=== PATIENT | female | born 2005 | race Hispanic/Latino ===

== ENCOUNTER 2024-02-20 13:56 | Emergency (ER) | payer SELFPAY ==
[~2024-02-20] VITALS: Ht 152.4 cm; Wt 55.6 kg
[2024-02-20] MEDS ORDERED: LORazepam 1 MG TAB PO ONE (14:15)
[2024-02-20 14:33] LABS: BASOPHILS 0.7 % (0-2); EOSINOPHILS 0.4 % (0-6); HEMATOCRIT 39.8 % (35.0-50.0); HEMOGLOBIN 12.9 g/dL (12.0-18.0); LYMPHOCYTES 15.3 % (24-44); MCH 23.3 (27-36); MCHC 32.5 g/dl (30-36); MCV 71.8 fl (81-99); NEUTROPHILS 75.6 % (39-80); PLATELET COUNT 465 K/uL (140-440); RBC 5.54 M/ul (4.3-5.7); RDW 18.4 (10.5-15.0)
[2024-02-20] MEDS ORDERED: diphenhydrAMINE HCL 50 MG CAP PO ONE (14:45)
[2024-02-20 14:48] LABS: ALBUMIN 3.7 g/dL (3.4-5.0); ALBUMIN/GLOBULIN RATIO 0.77 (1.1-2.4); BILIRUBIN, TOTAL 0.4 ng/dL (0.2-1.0); BUN/CREATININE RATIO 12.35 (6.0-28.6); CALCIUM 9.1 mg/dL (8.5-10.1); CREATININE, SERUM 0.89 mg/dL (0.55-1.02); PROTEIN, TOTAL 8.5 g/dL (6.4-8.2)
[2024-02-20 16:43] LABS: AMPHETAMINES, URINE POSITIVE (NEGATIVE); BARBITURATES, URINE NEGATIVE (NEGATIVE); BENZODIAZEPINE, URINE NEGATIVE (NEGATIVE); BUPRENORPHINE, URINE NEGATIVE (NEGATIVE); CANNABINOID, URINE POSITIVE (NEGATIVE); COCAINE, URINE NEGATIVE (NEGATIVE); ECSTASY, URINE POSITIVE (NEGATIVE); FENTANYL, URINE POSITIVE (NEGATIVE); METHADONE, URINE NEGATIVE (NEGATIVE); OPIATES, URINE NEGATIVE (NEGATIVE); OXYCODONE, URINE NEGATIVE (NEGATIVE); PHENCYCLIDINE, URINE NEGATIVE (NEGATIVE)
[2024-02-20] MEDS ORDERED: NALOXONE 4 MG NASAL SPRAY #2 HOME.PACK NAS ONE (18:00)
[2024-02-20 18:19] VITALS: BP 113/101
== END 2024-02-20 18:19 | disposition home or self-care (01) ==
LOC: ED 13:56
PROVIDERS: Emergency Medicine
DX: F19.10 Other psychoactive substance abuse, uncomplicated (principal)
CPT/HCPCS: 36415; 80053; 80307; 84703; 85025; A9270-GY; G0480; J3490; Q0163

== ENCOUNTER 2024-08-07 16:49 | Observation (INO) | payer OTHER | END 2024-08-07 23:40 | disposition home or self-care (01) | LOC: ED 16:49 → MS 16:50 | PROVIDERS: ADMIT Surgery | PROC: 0DC68ZZ Extirpation of Matter from Stomach, Via Natural or Artificial Opening Endoscopic (ICD-10-PCS; principal; 2024-08-07) | DX: T18.2XXA Foreign body in stomach, initial encounter (principal); W44.A0XA Battery unspecified, entering into or through a natural orifice, initial encounter; Y92.149 Unspecified place in prison as the place of occurrence of the external cause ==

== ENCOUNTER 2024-11-05 13:44 | Observation (INO) | payer OTHER ==
[~2024-11-05] VITALS: Ht 152.4 cm; Wt 72.0 kg
[2024-11-05] MEDS ORDERED: LACTATED RINGER'S 1,000 ML IV SCH ×2 (14:15→17:15)
[2024-11-05 14:37] LABS: BASOPHILS 0.5 % (0.1-1.2); EOSINOPHILS 0.3 % (0.7-5.8); LYMPHOCYTES 18.2 % (19.3-51.7); MCH 21.9 PG (25.6-32.2); MCHC 31.8 g/dL (32.2-35.5); MCV 69.0 fL (79.4-94.8); MONOCYTES 6.9 % (4.7-12.5); NEUTROPHILS 73.9 % (34.0-71.1); RBC 5.65 M/uL (3.93-5.22)
[2024-11-05 14:54] LABS: ALT (SGPT) 20.0 U/L (14-59); AST (SGOT) 19.0 U/L (15-37); GLOMERULAR FILTRATION RATE,EST 138.0 mL/min (>60); PROTEIN, TOTAL 7.6 g/dL (6.4-8.2); UREA NITROGEN 10.0 mg/dL (7-18)
[2024-11-05 15:19] LABS: BLOOD/HGB, URINE NEGATIVE (Negative); KETONE, URINE NEGATIVE (Negative); LEUK ESTERASE, URINE MODERATE (negative); NITRITE, URINE NEGATIVE (negative)
[2024-11-05 15:24] LABS: EPITHELIAL CELLS, URINE SQUAMOUS 4+ /lpf (0-1+)
[2024-11-05 15:25] LABS: BACTERIA, URINE 1+ /hpf (negative); CASTS, URINE NONE SEEN \\lpf; CRYSTALS, URINE NONE SEEN (0-1+); REFLEX CULTURE, URINE No (No)
[2024-11-05] MEDS ORDERED: SEVOFLURANE 250 ML BTL INH ONE (15:31)
[2024-11-05] MEDS ORDERED: SUCCINYLCHOLINE IN 0.9% NACL 200 MG/10 ML SYRINGE ONE (17:33)
[2024-11-05] MEDS ORDERED: LIDOCAINE HCL 2% 5 ML SDV ONE (17:33)
[2024-11-05 18:40] VITALS: BP 130/92
--- NOTE | 2024-11-05 18:40 | NUR ---
PT ARRIVES TO ROOM 127 VIA STRETCHER - ALERT AND ORIENTED SITTING UP IN BED. PT DRINKING WATER WITHOUT DIFFICULTY. PT DENIES PAIN OR ANY COMPLAINTS. VS STABLE. SANDWHICH BOX AND WARM BLANKET PROVIDED. CALL LIGHT IN REACH.
--- NOTE | 2024-11-05 18:57 | NUR ---
11/05/24 1857 Meggan Vila 1814 PT ARRIVED TO PACU ASLEEP AND VSS. RESP EVEN AND UNLABORED. 181 O2 REMOVED. PT WOKE TO TACTILE STIMULI AND MOVING AROUND IN BED WITH EYES CLOSED. 182 PT WOKE AND EYES OPEN, REORIENTED TO PACU. DENIES PAIN AND NAUSEA. 184 PT EATING FOOD AND SIPPING WATER. PT TRANSFERED TO CCU AND ALL QUESTIONS ANSWERED. PLAN OF CARE DISCUSSED.
[2024-11-05] MEDS ORDERED: FAMOTIDINE 20 MG/ 2 ML VIAL IV SCH (21:00)
--- NOTE | 2024-11-08 11:57 | OR ---
[facility] [address], [place] [address] Signed DATE OF OPERATION: 11/05/2024 SURGEON: Natasha Ospina MD TIME: 06:10 p.m. PREOPERATIVE DIAGNOSIS: Recurrent ingested foreign body (battery, AAA size). POSTOPERATIVE DIAGNOSIS: Recurrent ingested foreign body (battery, AAA size). PROCEDURES: 1. Upper endoscopy. 2. Endoscopic extraction of gastric foreign body (battery). ANESTHESIA: General endotracheal. Fady Henley CRNA. INDICATION: This 19-year-old woman is incarcerated at [facility] and brought by shelter personnel to the emergency room having ingested yet another battery. She has had the same episode in July 2024. She has had other episodes of a similar nature. The patient is always released from custody anticipating medical intervention, which has unfortunately a positive effect on her ingesting foreign body so as to be released from the shelter reliably. In any case, the KUB and CT scan were performed confirming an AAA size battery in the proximal stomach just as she had in July. She is admitted at this time to undergo upper endoscopy with removal of foreign body, battery, on the basis of severe and significant complications that ingestion of batteries, specifically erosion and perforation. She understands the risk of upper endoscopy and foreign body extraction, which include but is not limited to bleeding, infection, and perforation. FINDINGS: Esophagus, stomach, and duodenum were otherwise normal with some retained food. The battery was in the fundus of the stomach. It was removed completely as with 2 small metal prongs associated with it. There remains no foreign body in the GI tract that we know of now. Electronically Signed By: NATASHA OSPINA MD 11/08/24 1157 PATIENT NAME: NIKKI RILEY OPERATIVE REPORT DATE OF : [birth year] REPORT #: [id number] PHYSICIAN: NATASHA OSPINA MD PCP: NO PRIMARY CARE PHYSICIAN REPORT IS CONFIDENTIAL AND NOT TO BE RELEASED WITHOUT AUTHORIZATION [facility] [address], [place] [address] Signed DESCRIPTION OF PROCEDURE: The patient was brought to the endoscopy suite and placed in the supine position and given a general endotracheal anesthetic for airway protection. Olympus video upper endoscope was passed into the hypopharynx and down the esophagus without problem. Stomach was entered, and some retained food was noted. The battery was not readily visible at that time. Retroflexed view showed a mass of food in the fundus and similarly in the antrum. Irrigation was undertaken distalward, and once the distal food material was cleared, the scope was passed into the duodenum showing no evidence of foreign body there. The scope was withdrawn, and retroflexed view undertaken with copious irrigation and various manipulations. Ultimately, the battery could be identified. Alignment of the battery required some manipulation with a snare device, but ultimately, it was encircled at the very end of the battery and extracted through the GE junction and out. A short metal which was independent of the battery was distally sought and removed with snare technique as well. Final and complete upper endoscopy showed no sign of foreign body and only minimal, if any, retained food at that point. There was no evidence of anatomic stricture or injury or ulceration. She was taken to recovery room in good condition. Natasha Ospina MD JM/MODL /[id number] cc: [facility] Department Dr. Terrance Prieto [facility] Copies: ~ Electronically Signed By: NATASHA OSPINA MD 11/08/24 1157 PATIENT NAME: NIKKI RILEY OPERATIVE REPORT DATE OF : 04 REPORT #: [id number] PHYSICIAN: NATASHA OSPINA MD PCP: NO PRIMARY CARE PHYSICIAN REPORT IS CONFIDENTIAL AND NOT TO BE RELEASED WITHOUT AUTHORIZATION
--- NOTE | 2024-11-11 12:23 | HP ---
[facility] [address], [place] [address] Signed ADMISSION DATE: 11/05/2024 TIME: 5:10 p.m. PROBLEM: Recurrent ingestion of foreign body (AAA battery). HISTORY OF PRESENT ILLNESS: This 19-year-old woman who is incarcerated at the [facility] [place] [facility] and accompanied by a guard and under restraint. She has swallowed an AAA size battery, which on evaluation by Dr. Prieto shows it to remain in the stomach. A KUB and a CT scan affirm this. The patient is known to me from the past having had a similar episode on August 07, 2024, at which time upper endoscopy was performed extracting a foreign body. PAST MEDICAL HISTORY: Relatively unremarkable. LABORATORY STUDIES: Obtained upon her evaluation show a white count of 13.05, hematocrit 39, platelets 341,000. Chem profile, which is normal with a creatinine of 0.49. Beta-hCG is negative. Urinalysis is also abnormal for elevated white cells of 7 to 11, but there are 4+ squames. She says she is not having pain particularly. She has had no hematemesis. PHYSICAL EXAMINATION: GENERAL: A well appearing young woman, who looks to be in no acute distress. VITAL SIGNS: Temperature is 98.3, pulse is 84, blood pressure 115/97. NECK: Trachea is midline. CHEST: Shows normal respiratory excursion. Pulses regular. ABDOMEN: Nontender. ASSESSMENT: The patient has ingested battery. Once again, I reviewed the films, which confirmed that her stomach indeed is probably in the fundus. Given the nature of the ingested foreign body of the battery, prompt removal was generally most appropriate as the potential erosive effects of batteries in an acid environment is problematic and can cause more significant disease. It is troublesome that she has ingested foreign bodies Electronically Signed By: NATASHA OSPINA MD 11/11/24 1223 PATIENT NAME: NIKKI RILEY HISTORY AND PHYSICAL DATE OF : 04 REPORT #: [id number] PHYSICIAN: NATASHA OSPINA MD PCP: NO PRIMARY CARE PHYSICIAN REPORT IS CONFIDENTIAL AND NOT TO BE RELEASED WITHOUT AUTHORIZATION [facility] [address], [place] [address] Signed before and the ER physician tells me she has done this in her experience as well. As this is protocol of the [place] [facility] upon hearing of need for operative intervention, they plan to release her from custody so as to avoid the bill attended to her treatment, which in her particular case has been proven very effective for getting out of [place] [facility] quite obviously. I suspect this behavior will continue until the former protocol by the [facility]'s Department changes. In any case, we will take her under general anesthesia for removal of the foreign body. I discussed the risk of bleeding, infection, perforation, and so forth. She understands and wishes to proceed. MD TUAN Galicia/REE /[id number] cc: Dr. Terrance Early Copies: ~ Electronically Signed By: NATASHA OSPINA MD 11/11/24 1223 PATIENT NAME: ETHAN RILEYALBERTO MAYLE HISTORY AND PHYSICAL DATE OF : 04 REPORT #: [id number] PHYSICIAN: NATASHA OSPINA MD PCP: NO PRIMARY CARE PHYSICIAN REPORT IS CONFIDENTIAL AND NOT TO BE RELEASED WITHOUT AUTHORIZATION
== END 2024-11-05 19:30 | disposition home or self-care (01) ==
LOC: ED 13:44 → MS 13:46 → CCU 18:41
PROVIDERS: Emergency Medicine; ADMIT Surgery; ATTEND Surgery
PROC: 0DC68ZZ Extirpation of Matter from Stomach, Via Natural or Artificial Opening Endoscopic (ICD-10-PCS; principal; 2024-11-05 17:40)
DX: T18.2XXA Foreign body in stomach, initial encounter (principal); W44.A9XA Other batteries entering into or through a natural orifice, initial encounter
CPT/HCPCS: 00731; 36415; 71045; 74018; 74177; 80053; 81001; 84703; 85025; 85060; 99285-25; J0330; J2003; J2405; J2704; J7121; Q9967

== ENCOUNTER 2024-12-21 20:37 | Emergency (ER) | payer OTHER ==
[~2024-12-21] VITALS: Ht 160 cm; Wt 68.2 kg
[2024-12-21 22:28] VITALS: BP 00/00
== END 2024-12-21 22:28 | disposition left against medical advice (07) ==
LOC: ED 20:37
DX: S60.440A External constriction of right index finger, initial encounter (principal); Z53.29 Procedure and treatment not carried out because of patient's decision for other reasons; W49.04XA Ring or other jewelry causing external constriction, initial encounter
CPT/HCPCS: 99283

== ENCOUNTER 2024-12-22 09:18 | Emergency (ER) | payer OTHER ==
[~2024-12-22] VITALS: Ht 160 cm; Wt 70.0 kg
--- OUTSIDE RECORDS SUMMARY | 2024-12-22 09:25 | XMS ---
PreManage Notification: VERA RILEY Security Third Rigger Events No recent Security Events currently on file CRITERIA MET - 6 ED Visits in 6 Months - [facility] - 2 Visits in 30 Days CARE PROVIDERS There are no care providers on record at this time. Kesha has no Care Guidelines for this patient. [facility] MO[facility] NOTE: Visits indicate total known visits. ED/UCC VISIT TRACKING (12 MO.) [facility] COMPLAINT: - FINGER SWELLING 12/21/2024 20:38 [facility] [place] TYPE: Emergency COMPLAINT: - FINGER INJURY 11/05/2024 13:45 [facility] [place] TYPE: Emergency COMPLAINT: - FOREIGN BODY 08/26/2024 20:35 [facility] [place] TYPE: Emergency COMPLAINT: - OD DIAGNOSES: - Poisoning by fentanyl or fentanyl analogs, accidental (unintentional), initial encounter - Poisoning by methamphetamines accidental (unintentional), initial encounter 08/21/2024 15:15 [facility] [place] TYPE: Emergency COMPLAINT: - MEDICAL CLEARENCE DIAGNOSES: - Foreign body of alimentary tract, part unspecified, initial encounter - Malingerer [conscious simulation] 08/07/2024 16:49 [facility] [place] TYPE: Emergency COMPLAINT: - FORIGEN BODY 02/20/2024 13:59 [facility] [place] TYPE: Emergency COMPLAINT: - ANXIETY DIAGNOSES: - Anxiety disorder, unspecified - Other psychoactive substance abuse, uncomplicated INPATIENT VISIT TRACKING (12 MO.) 11/05/2024 13:46 [facility] [place] TYPE: Observation COMPLAINT: - INGESTED FOREIGN BODY (STOMACH) DIAGNOSES: - Foreign body in stomach, initial encounter - Other batteries entering into or through a natural orifice, initial encounter 08/07/2024 16:50 [facility] [place] TYPE: Observation COMPLAINT: - SWALLOWED FB DIAGNOSES: - Battery unspecified, entering into or through a natural orifice, initial encounter - Foreign body in stomach, initial encounter - Unspecified place in snf as the place of occurrence of the external cause [email or web address]
[2024-12-22] MEDS ORDERED: CEPHALEXIN MONOHYDRATE 500 MG CAP PO ONE (10:00)
[2024-12-22] MEDS ORDERED: TRIMETHOPRIM/SULFAMETHOXAZOLE 1 EA TAB PO ONE (10:00)
[2024-12-22] MEDS ORDERED: OLANZapine 10 MG TABDIS PO ONE (10:15)
[2024-12-22] MEDS ORDERED: ACETAMINOPHEN 500 MG TAB PO ONE (12:30)
[2024-12-22] MEDS ORDERED: IBUPROFEN 600 MG TAB PO ONE (12:30)
[2024-12-22 12:52] LABS: BASOPHILS 0.4 % (0.1-1.2); EOSINOPHILS 0.4 % (0.7-5.8); LYMPHOCYTES 15.3 % (19.3-51.7); MCH 22.2 PG (25.6-32.2); MCHC 32.8 g/dL (32.2-35.5); MCV 67.8 fL (79.4-94.8); MONOCYTES 9.1 % (4.7-12.5); NEUTROPHILS 74.3 % (34.0-71.1); RBC 5.18 M/uL (3.93-5.22)
[2024-12-22 13:10] LABS: ALT (SGPT) 21.0 U/L (14-59); AST (SGOT) 16.0 U/L (15-37); GLOMERULAR FILTRATION RATE,EST 143.0 mL/min (>60); PROTEIN, TOTAL 7.3 g/dL (6.4-8.2); UREA NITROGEN 7.0 mg/dL (7-18)
[2024-12-22 13:58] LABS: ERYTHROCYTE SEDIMENTATION RATE 34
[2024-12-22] MEDS ORDERED: DAPTOmycin 500 MG/10 ML VIAL IV ONE (16:15)
[2024-12-22] MEDS ORDERED: LORazepam 1 MG TAB PO ONE (18:00)
[2024-12-22 20:54] VITALS: BP 107/71
== END 2024-12-22 10:00 | disposition short-term general hospital (02) ==
LOC: ED 09:18
PROVIDERS: Emergency Medicine
DX: L02.511 Cutaneous abscess of right hand (principal); S60.440A External constriction of right index finger, initial encounter; W49.04XA Ring or other jewelry causing external constriction, initial encounter
CPT/HCPCS: 36415; 73130; 80053; 84703; 85025; 85060; 85651; 86140; 96374; 99284-25; A9270; A9270-GY; J0878